=== PATIENT | male | born 1955 | race Caucasian/White ===

== ENCOUNTER → 2017-01-01 | Outpatient (CLI) | payer OTHER ==
[~2017-01-01] MED LIST: AMAN100C18 PO; ASPI-232 PO; CHOL100010 PO; METH2.5T PO; MULT1CAP17 PO; SIMV20TA5 PO; TAMS0.4C38 PO
== END | disposition home or self-care (01) ==
LOC: C.PATHSPEC 17:51
PROVIDERS: ATTEND Podiatrist Foot & Ankle Surgery
DX: D23.72 Other benign neoplasm of skin of left lower limb, including hip (principal)

== ENCOUNTER → 2017-01-29 | Outpatient (CLI) | payer OTHER | END | disposition home or self-care (01) | LOC: C.LABSPEC 17:33 | PROVIDERS: ATTEND Podiatrist Foot & Ankle Surgery | DX: L97.509 Non-pressure chronic ulcer of other part of unspecified foot with unspecified severity (principal) ==

== ENCOUNTER → 2017-03-02 | Outpatient (CLI) | payer OTHER | END | disposition home or self-care (01) | LOC: C.LABSPEC 17:28 | PROVIDERS: ATTEND Podiatrist Foot & Ankle Surgery | DX: L97.509 Non-pressure chronic ulcer of other part of unspecified foot with unspecified severity (principal) ==

== ENCOUNTER → 2017-04-14 | Outpatient (CLI) | payer OTHER ==
[2017-04-14 18:03] LABS: BLOOD UREA NITROGEN 19 mg/dl (7-18); BUN/CREATININE RATIO 22.3 (10-20); CREATININE 0.87 mg/dl (0.60-1.40)
[2017-04-14 18:07] LABS: PROSTATE SPECIFIC ANTIGEN 0.854 ng/ml (0.000-4.000)
== END | disposition home or self-care (01) ==
LOC: C.LABBFT 09:24
PROVIDERS: ATTEND Urology
DX: N31.8 Other neuromuscular dysfunction of bladder (principal); N40.1 Benign prostatic hyperplasia with lower urinary tract symptoms; Z12.5 Encounter for screening for malignant neoplasm of prostate

== ENCOUNTER → 2017-08-07 | Outpatient (CLI) | payer OTHER ==
[2017-08-07 16:43] LABS: HEMATOCRIT 42.4 % (42-52); MEAN CELL VOLUME 91.2 fL (80-100); MEAN CORPUSCULAR HEMOGLOBIN 30.3 pg (25-34); MEAN CORPUSCULAR HGB CONC 33.3 g/dl (32-36); MEAN PLATELET VOLUME 11.4 fL (7.4-10.4); PLATELET COUNT 274 K/uL (130-400); RED BLOOD COUNT 4.65 M/uL (4.7-6.1); WHITE BLOOD COUNT 9.03 K/uL (4.8-10.8)
[2017-08-07 16:57] LABS: ALT/SGPT 68 U/L (12-78); AST/SGOT 25 U/L (15-37); BLOOD UREA NITROGEN 16 mg/dl (7-18); BUN/CREATININE RATIO 19.9 (10-20); CALCIUM 8.9 mg/dl (8.5-10.1); CARBON DIOXIDE 30 mmol/L (21-32); CHLORIDE 106 mmol/L (98-107); CREATININE 0.79 mg/dl (0.60-1.40); GLUCOSE 86 mg/dl (70-99); POTASSIUM 3.6 mmol/L (3.5-5.1); SODIUM 141 mmol/L (136-145)
[2017-08-07 16:59] LABS: ALB/GLOB RATIO 0.7 (0.9-2); ALKALINE PHOSPHATASE 171 U/L (45-117); CHOLESTEROL 119 mg/dl (0-200); CHOLESTEROL/HDL RATIO 3.2; HDL CHOLESTEROL 37 mg/dl; LDL CHOLESTEROL CALCULATED 45 mg/dl; TRIGLYCERIDES 184 mg/dl (0-150); VERY LOW DENSITY LIPOPROT CALC 37 mg/dl
== END | disposition home or self-care (01) ==
LOC: C.LABBFT 13:46
PROVIDERS: ATTEND Internal Medicine
DX: E78.5 Hyperlipidemia, unspecified (principal)

== ENCOUNTER → 2017-09-22 | Outpatient (CLI) | payer OTHER ==
[~2017-09-22] MED LIST changes: +BACL10TA PO; +CHOL200027 PO; +OPTIRAY 320 IV PRN
--- NOTE | 2017-09-22 12:44 | DIAGNOSTIC IMAGING REPORT ---
CT ABD/PELVIS IV AND ORAL CONT CLINICAL HISTORY: R15.2 Fecal [id number] COMPARISON STUDY: 01/19/2006 TECHNIQUE: Following the IV administration of 92 mL of Optiray-320, CT scan of the abdomen and pelvis was performed from the lung bases to the proximal femurs. Images are reviewed in the axial, sagittal, and coronal planes. IV contrast was administered without complication. A dose lowering technique was utilized adhering to the principles of ALARA. CT DOSE: 441.06 mGy.cm FINDINGS: Lower chest: The heart is normal in size and configuration, without pericardial effusion. The lung bases and pleural spaces are clear. Liver: The contrast-enhanced liver is normal in size, contour, and attenuation. There is no intrahepatic biliary ductal dilatation. The hepatic veins and portal veins are patent. Gallbladder: Unremarkable. Spleen: Normal in size and attenuation. Pancreas: Unremarkable. Adrenal glands: Unremarkable. Kidneys: There is a 13 mm lower pole right renal hypodensity. Although likely representing a cyst, the lesion is indeterminate by CT criteria as it slightly exceeds water attenuation. There is right renal cortical scarring. Bowel: There are no transition zones indicate bowel obstruction. There are no findings to indicate acute diverticulitis. There are few scattered diverticula present. There are no findings to indicate acute appendicitis. There is no pathologic bowel wall thickening. Peritoneum: There is no intraperitoneal free air or abdominal ascites. There is a fat-containing supraumbilical hernia. Vasculature: The abdominal aorta is normal in course and caliber. Adenopathy: None. Pelvic viscera: The bladder, and pelvic viscera are unremarkable. Skeletal structures: No destructive osseous lesions are seen. IMPRESSION: 1. No evidence of bowel obstruction. No evidence of free air 2. No acute inflammatory changes 3. Fat-containing supraumbilical ventral hernia 4. 13 mm lower pole right renal hypodensity. Although likely representing a cyst, the lesion is indeterminate by CT criteria as it slightly exceeds water attenuation Electronically signed by: Raghu Duran M.D. 09/22/2017 12:43 PM Dictated Date/Time: 09/22/2017 12:34 PM
== END | disposition home or self-care (01) ==
LOC: C.CTS 11:47
PROVIDERS: ATTEND Internal Medicine
DX: R15.2 Fecal urgency (principal); K43.9 Ventral hernia without obstruction or gangrene

== ENCOUNTER → 2017-12-03 | Outpatient (CLI) | payer OTHER ==
[~2017-12-03] MED LIST changes: -OPTIRAY 320 IV PRN
--- NOTE | 2017-12-03 12:44 | DIAGNOSTIC IMAGING REPORT ---
CHEST 2 VIEWS ROUTINE CLINICAL HISTORY: Preoperative evaluation. COMPARISON STUDY: No previous studies for comparison. FINDINGS: Lung volumes are normal. Lungs are clear. No pneumothorax or pleural effusion is noted. Pulmonary vascularity is normal. Cardiomediastinal silhouette is unremarkable. IMPRESSION: No acute cardiopulmonary findings. Electronically signed by: Carlos Kern M.D. 12/03/2017 12:42 PM Dictated Date/Time: 12/03/2017 12:42 PM
== END | disposition home or self-care (01) ==
LOC: C.RAD 12:16
PROVIDERS: ATTEND Podiatrist Foot & Ankle Surgery
DX: Z01.810 Encounter for preprocedural cardiovascular examination (principal)

== ENCOUNTER 2017-12-08 06:43 | Day surgery (SDC) | payer OTHER ==
--- NOTE | 2017-12-03 11:59 | HISTORY & PHYSICAL EXAMINATION ---
DATE OF ADMISSION: 12/08/2017 HISTORY OF PRESENT ILLNESS: A 62-year-old male presents for preoperative evaluation. Pain is located in the left foot, described as unchanged. Condition was first noted over a year ago. He notes acid condition, cryotherapy, palliative debridement has not improved the condition. Conservative treatment has been performed for over a year. Past treatments for this also include bleo laura therapy for an extensive period of time with little to minimal improvement. Due to the nature and severity of the discomfort, he is requesting surgical intervention. PAST SURGICAL HISTORY: No previous surgery. PAST MEDICAL HISTORY: Hypercholesterolemia and multiple sclerosis. MEDICATIONS: Simvastatin, amantadine, methotrexate. ALLERGIES: No known medical allergies. FAMILY HISTORY: Unremarkable. SOCIAL HISTORY: The patient denies smoking, alcohol use, illicit drug use, and STDs. REVIEW OF SYSTEMS: Unremarkable except chief complaint. PHYSICAL EXAMINATION: VITAL SIGNS: He is 5 feet 8 inches, 160 pounds, body mass index 24. CONSTITUTIONAL: The patient appears well-developed and nourished with good attention to body and grooming habitus. HEAD AND FACE: Head is normocephalic and atraumatic without any gross head, face, or neck masses. EYES: Conjunctival and pupillary reaction to light and accommodation are normal. EARS, NOSE, MOUTH, AND THROAT: Unremarkable. NECK: Neck is supple. Trachea is midline without any adenopathy or crepitance palpable. CARDIOVASCULAR: Normal S1 and S2 without murmur, gallops, rubs, or clicks noted. Cardiovascular exam is normal. RESPIRATORY: Chest is symmetric. No scars are visible. No port or pacemaker. LUNGS: Clear to auscultation bilaterally and equally. GASTROINTESTINAL: Bladder, kidney and abdominal organs showed no masses, tenderness, or rigidity. LYMPHATIC: No popliteal, inguinal, or supraclavicular lymphadenopathy noted. LOWER EXTREMITIES: DP palpable. PT palpable. DERMATOLOGICAL: Cutaneous vascular lesions are observed, submet left second and right second show an interruption of skin tension lines are calloused. NEUROLOGICAL: Touch, pin, vibratory and proprioception sensations are normal. Deep tendon reflexes are normal. MUSCULOSKELETAL: Muscle tone is normal. Muscle strength is 5/5 all groups tested. Right second metatarsophalangeal joint shows retrograde buckling across the metatarsophalangeal joint. PIPJ contracture noted 2 through 5 bilaterally. IMPRESSION: 1. Benign epithelial lesions, rule out foreign body, verruca versus biomechanics. 2. Status post excision of lesion on the left foot on 01/01/2017 and 5 bleomycin injections on 05/12/2017, 06/12/2017, and 07/08/2017. 3. Metatarsalgia secondary to painful lesions. PLAN: I informed the patient the etiology and possible treatment options consisting of debridement, application of acid, surgical excision, cryotherapy, CO2 laser vaporization, bleomycin. Reviewed procedures and complications for all treatments at length. All questions were answered and the patient is aware that no treatment in common use is 100% effective and success rate for all treatments are relatively similar. The patient elected to proceed with destruction of lesions, partial lesion excision. This will be performed on the left lower extremity as an outpatient at the hospital. The procedure, risks and complications were fully reviewed with the patient. Consent form, foot diagram and illustration reviewed in all their entirety. All the patient's questions were answered. Complications were discussed in detail with the patient including pain, infection, swelling that may or may not be excessive, pins and needles feeling, numbness, metatarsalgia, excessive bleeding, delay or nonhealing of bone, enlarged scar, failure of the procedure, recurrence or worsening condition, which may or may not require further surgery, adverse reaction to anesthesia, allergic reaction to suture or other implant material, loss of toe, foot, or leg, transfer lesion or callus, peripheral neurovascular complications such as phlebitis, damage to nerves or vascular structures, recurrent pain, chronic nerve pain, and general medical complications. The patient will be required to be in a surgery shoe for a minimum of 3-7 days and not return to dress shoe for 3 weeks depending on postop edema, need for accommodative padding. The patient is aware of this and elected to have the procedure and I recommend a second opinion. The patient stated they understood. Consent form and foot diagram was given to the patient. Verbal and written postop instructions were given. The patient will keep the dressing clean, dry, and intact until seen at the office. At the time of the preoperative appointment, prescriptions for Keflex, Silvadene and Vicodin were dispensed. [facility]
[2017-12-03 15:22] VITALS: BMI 24.0
[~2017-12-08] VITALS: Ht 172.7 cm; Wt 72.7 kg
[~2017-12-08 06:43] MED LIST changes: -CHOL100010 PO; +LACTATED RINGER'S 1000ML 1,000 ML IV SCH; -TAMS0.4C38 PO
[2017-12-08 07:19] VITALS: Ht 172.7 cm; Wt 72.7 kg
--- NOTE | 2017-12-08 07:30 | History & Physical Bridge Note ---
H&P Re-Evaluation Bridge Note: I have examined the patient, reviewed the History & Physical and in the interval since the performance of the History & Physical I have noted the following changes of clinical significance: No changes noted
[2017-12-08] MEDS ORDERED: SODIUM CHLORIDE 0.9% 1000ML 1,000 ML IV SCH ×2 (07:31)
--- NOTE | 2017-12-08 07:31 | Discharge Instructions ---
Discharge Instructions Date of Service Dec 08, 2017. Visit Reason for Visit: Painful Vascular Lesion Metatarsalgia Discharge Discharge Diagnosis / Problem: same as diagnosis Discharge Goals Goal(s): Decrease discomfort Activity Recommendations Activity Limitations: as noted below Medications: * Resume previous medications unless instructed by your surgeon. * Take your medications as prescribed. Call our office ([phone]) at any time, if you experience severe pain that does not subside shortly after taking your pain medication. Activity: * You may walk on your operated foot/ankle using the surgical shoe or cast/splint. Do not put any weight on your operated foot/ankle without wearing the surgical shoe or cast sandal.. Special Care: * Keep your bandage clean and dry. Do not remove your bandage unless otherwise instructed. A small amount of blood may appear on the bandage over the surgical site. Call our office ([phone]) if you bandage becomes blood-soaked or wet. * Elevate your operated foot/ankle on pillows, above the level of your heart, as often as possible during the first 2-3 days following surgery. Keep your knee flexed slightly with a pillow under your knee when you elevate your foot/ankle. * Apply a ice bag to your foot/ankle over the operative site for 20-30 minutes out of each hour while you are awake. Do not allow the ice bag to directly contact bare skin. * Avoid bumping or handling any pins visible in your toes. If any pin feels or appears loose, call the office ([phone]). * Take your oral temperature in the morning and at bedtime. Call our office ([phone]) if your temperature rises above 101 degrees Fahrenheit. Call your surgeon's office at ([phone]) for any problems or concerns such as excessive bleeding and/or pain unrelieved by your prescribed pain medications. If you have any questions, please do not hesitate to ask them. Avoid all tobacco products. If you need help to stop smoking, call [place]'s FREE QUITLINE at . This is a free call. Follow-up: Follow-up with Dr. Oneal Anesthesia . Post Anesthesia Instructions: If you have had General Anesthesia or IV Sedation: * Do not drive today. * Resume driving when surgeon permits. * Do not make important decisions or sign legal documents today. * Call surgeon for: 1. Temperature elevations greater than 101 degrees F. 2. Uncontrollable pain. 3. Excessive bleeding. 4. Persistent nausea and vomiting. 5. Medication intolerance (nausea, vomiting or rash). * For nausea and vomiting use only clear liquids such as: tea, soda, bouillon until nausea subsides, then gradually increase diet as tolerated. * If you have any concerns or questions, call your surgeon's office. If physician is unavailable and it is an emergency, call 911 or go to the nearest emergency room. . Instructions / Follow-Up Instructions / Follow-Up Medications: * Resume previous medications unless instructed by your surgeon. * Take your medications as prescribed. Call our office ([phone]) at any time, if you experience severe pain that does not subside shortly after taking your pain medication. Activity: * You may walk on your operated foot/ankle using the surgical shoe or cast/splint. Do not put any weight on your operated foot/ankle without wearing the surgical shoe or cast sandal.. Special Care: * Keep your bandage clean and dry. Do not remove your bandage unless otherwise instructed. A small amount of blood may appear on the bandage over the surgical site. Call our office ([phone]) if you bandage becomes blood-soaked or wet. * Elevate your operated foot/ankle on pillows, above the level of your heart, as often as possible during the first 2-3 days following surgery. Keep your knee flexed slightly with a pillow under your knee when you elevate your foot/ankle. * Apply a ice bag to your foot/ankle over the operative site for 20-30 minutes out of each hour while you are awake. Do not allow the ice bag to directly contact bare skin. * Avoid bumping or handling any pins visible in your toes. If any pin feels or appears loose, call the office ([phone]). * Take your oral temperature in the morning and at bedtime. Call our office ([phone]) if your temperature rises above 101 degrees Fahrenheit. Call your surgeon's office at ([phone]) for any problems or concerns such as excessive bleeding and/or pain unrelieved by your prescribed pain medications. If you have any questions, please do not hesitate to ask them. Avoid all tobacco products. If you need help to stop smoking, call [place]'s FREE QUITLINE at . This is a free call. Follow-up: Follow-up with Dr. Oneal Diet Recommendations Recommended Home Diet: resume previous diet Pending Studies Studies pending at discharge: no Medical Emergencies . Who to Call and When: Medical Emergencies: If at any time you feel your situation is an emergency, please call 911 immediately. . Non-Emergent Contact Non-Emergency issues call your: Primary Care Provider . . "Provider Documentation" section prepared by Diana Botello. .
[2017-12-08] MEDS ORDERED: MIDAZOLAM HCL 1 MG/ML 2ML VIAL ONE (07:40)
[2017-12-08] MEDS ORDERED: PROPOFOL IV EMULSION 10 MG/ML 20 ML VIAL IV ONE (08:09)
[2017-12-08] MEDS ORDERED: FENTANYL CITRATE INJ 50 MCG/1 ML 2 ML VIAL ONE (08:09)
[2017-12-08] MEDS ORDERED: LIDOCAINE HCL 2% 2 ML VIAL (20MG/ML) ONE (08:09)
[2017-12-08] MEDS ORDERED: HYDROmorphone INJ 1 MG/ML SYR IV PRN (08:15)
[2017-12-08] MEDS ORDERED: EpHEDrine SULFATE INJ 50 MG/ML AMP IV PRN (08:15)
[2017-12-08] MEDS ORDERED: ATROPINE SULFATE 0.1 MG/ML 5ML SYR IV PRN (08:15)
[2017-12-08] MEDS ORDERED: ONDANSETRON INJ 2 MG/ML 2 ML VIAL IV PRN (08:15)
[2017-12-08] MEDS ORDERED: FENTANYL CITRATE INJ 50 MCG/1 ML 2 ML VIAL IV PRN (08:15)
[2017-12-08] MEDS ORDERED: BUPIVACAINE 0.5 % 5 MG/1 ML MPF 30ML VIAL ONE (08:45)
[2017-12-08] MEDS ORDERED: POVIDONE-IODINE 10% OINT 30 GM TUBE EX ONE (08:45)
[2017-12-08] MEDS ORDERED: SODIUM CHLORIDE 0.9% INJ 10 ML VIAL ONE (09:09)
[2017-12-08] MEDS ORDERED: CEFAZOLIN SOD 1 GM VIAL ONE (09:09)
[2017-12-08] MEDS ORDERED: GELATIN SPONGE SZ 100 ONE (09:27)
[2017-12-08] MEDS ORDERED: SILVER SULFADIAZINE 1% CR 50 GM JAR EXT ONE (09:35)
[2017-12-08 09:55] VITALS: BP 136/89; PULSE 71; TEMP 36.5; O2SAT 98
[2017-12-08 10:22] VITALS: BP 139/86; PULSE 67; TEMP 36.2; O2SAT 98
--- NOTE | 2017-12-08 11:07 | OPERATIVE REPORT ---
DATE OF OPERATION: 12/08/2017 SURGEON: Dr. Oneal. DENTAL PRACTITIONER: None. PREOPERATIVE DIAGNOSES: 1. Painful lesions, left. 2. Metatarsalgia. POSTOPERATIVE DIAGNOSES: Same. PROCEDURES: 1. Excision of lesion, depth of 1.2, left foot x4. 2. Destruction of cutaneous vascular lesions, premalignant, left foot greater than 15. HEMOSTASIS: None. ESTIMATED BLOOD LOSS: Less than 5 mL. MATERIALS: Gelfoam. INJECTIONS: None. COMPLICATIONS: None. DESCRIPTION OF PROCEDURE: The patient was brought to the OR and placed on the OR table in supine position. Upon completion of general anesthesia by the anesthesia department, a local field block was performed with 30 mL 0.5% Marcaine plain. The foot was scrubbed and draped in the usual aseptic fashion. Attention was directed to the left foot where 4 areas of excision occurred to the depth of 1.2. These were excised in total and sent to histopathology. Cautery was used to destroy the lesions greater than 15, plantar aspect of the left forefoot. This was debrided. Second application occurred. Gelfoam was applied, ABD, 4 x 4's, Kerlix, Coban and an RANDELL. The patient tolerated the procedure and anesthesia well without complications, transferred to recovery room with vital signs stable and neurovascular status intact. I attest to the content of the Intraoperative Record and any orders documented therein. Any exception s are noted below.
--- NOTE | 2017-12-08 12:00 | Anesthesiology Progress Note ---
Anesthesia Post Op Note Date & Time Dec 08, 2017 at 12:00 Vital Signs Pain Intensity: 0 Vital Signs Past 12 Hours Date Time Temp Pulse Resp B/P (MAP) Pulse Ox O2 Delivery O2 Flow Rate FiO2 12/08/17 10:22 36.2 67 18 139/86 98 Room Air 12/08/17 09:55 36.5 71 18 136/89 98 Room Air Notes Mental Status: alert / awake / arousable, participated in evaluation Pt Amnestic to Procedure: Yes Nausea / Vomiting: adequately controlled Pain: adequately controlled Airway Patency, RR, SpO2: stable & adequate BP & HR: stable & adequate Hydration State: stable & adequate Anesthetic Complications: no major complications apparent
== END 2017-12-08 10:39 | disposition home or self-care (01) ==
LOC: C.ACU 06:43
PROVIDERS: ATTEND Podiatrist Foot & Ankle Surgery
DX: B07.9 Viral wart, unspecified (principal); L98.9 Disorder of the skin and subcutaneous tissue, unspecified; M77.42 Metatarsalgia, left foot; G35 Multiple sclerosis; E78.00 Pure hypercholesterolemia, unspecified; Z79.82 Long term (current) use of aspirin; E78.5 Hyperlipidemia, unspecified; N40.0 Benign prostatic hyperplasia without lower urinary tract symptoms; Z87.891 Personal history of nicotine dependence

== ENCOUNTER → 2018-04-22 | Outpatient (CLI) | payer OTHER, MEDICARE ==
[~2018-04-22] MED LIST changes: -LACTATED RINGER'S 1000ML 1,000 ML IV SCH
--- NOTE | 2018-04-22 13:31 | DIAGNOSTIC IMAGING REPORT ---
L-SPINE MIN 4 VIEWS ROUTINE HISTORY: Pain M54.5 Low back pain COMPARISON: None. FINDINGS: There is no fracture. Mild scoliosis. Disc spaces are preserved. IMPRESSION: No fracture or subluxation within the lumbar spine. Scoliosis. Moderate degenerative change. The above report was generated using voice recognition software. It may contain grammatical, syntax or spelling errors. Electronically signed by: Migel Oakley M.D. 04/22/2018 1:29 PM Dictated Date/Time: 04/22/2018 1:26 PM
== END | disposition home or self-care (01) ==
LOC: C.RAD1850 13:08
PROVIDERS: ATTEND Internal Medicine
DX: M54.5 Low back pain (principal); M41.9 Scoliosis, unspecified

== ENCOUNTER → 2018-04-26 | Outpatient (CLI) | payer OTHER, MEDICARE ==
[2018-04-26 17:29] LABS: BASO % 0.3 %; BASO ABS # 0.02 K/uL (0-0.2); EOS % 2.3 %; EOS ABS # 0.14 K/uL (0-0.5); HEMATOCRIT 42.2 % (42-52); HEMOGLOBIN 14.5 g/dL (14.0-18.0); IG# 0.02 K/uL (0.00-0.02); LYMPH % 22.2 %; LYMPH ABS # 1.37 K/uL (1.2-3.4); MEAN CELL VOLUME 89.8 fL (80-100); MEAN CORPUSCULAR HEMOGLOBIN 30.9 pg (25-34); MEAN CORPUSCULAR HGB CONC 34.4 g/dl (32-36); MEAN PLATELET VOLUME 11.8 fL (7.4-10.4); MONO % 9.9 %; MONO ABS # 0.61 K/uL (0.11-0.59); NEUT ABS # 4.01 K/uL (1.4-6.5); PLATELET COUNT 186 K/uL (130-400); RED CELL DISTRIBUTION WIDTH CV 13.1 % (11.5-14.5); RED CELL DISTRIBUTION WIDTH SD 42.5 fL (36.4-46.3); WHITE BLOOD COUNT 6.17 K/uL (4.8-10.8)
[2018-04-26 17:56] LABS: BLOOD UREA NITROGEN 19 mg/dl (7-18); CREATININE 0.84 mg/dl (0.60-1.40)
== END | disposition home or self-care (01) ==
LOC: C.LABBFT 11:45
PROVIDERS: ATTEND Urology
DX: E78.00 Pure hypercholesterolemia, unspecified (principal); G35 Multiple sclerosis; R15.2 Fecal urgency